=== PATIENT | female | born 1960 | race Caucasian/White ===

== ENCOUNTER 2021-03-07 20:57 | Emergency (ER) | payer OTHER ==
[~2021-03-07] VITALS: Ht 160 cm; Wt 89.8 kg
[2021-03-07 21:47] LABS: ABSOLUTE BASOPHILS 0.1 thou/uL (0.0-0.2); ABSOLUTE EOSINOPHILS 0.1 thou/uL (0.0-0.7); ABSOLUTE LYMPHOCYTES 2.4 thou/uL (0.8-5.3); ABSOLUTE MONOCYTES 0.8 thou/uL (0.0-1.2); ABSOLUTE NEUTROPHILS 7.6 thou/uL (1.6-8.1); BASOPHILS 0.9 %; EOSINOPHILS 0.7 %; HEMATOCRIT 40.6 % (37.0-47.0); HEMOGLOBIN 13.7 gm/dL (12.0-15.0); LYMPHOCYTES 21.8 %; MCH 30.5 pg (26.0-34.0); MCHC 33.8 g/dL (28.0-37.0); MCV 90.3 fL (80.0-100.0); MONOCYTES 7.4 %; MPV 7.2 fl. (7.2-11.1); NUCLEATED RBCS 0 /100WBC; PLATELET COUNT* 304 thou/uL (150-400); POLYS 69.2 %; RDW-CV 13.2 % (10.5-14.5)
[2021-03-07 21:56] LABS: CALCIUM 8.9 mg/dL (8.5-10.1); POTASSIUM 3.8 mmol/L (3.5-5.1)
[2021-03-07 22:00] LABS: ALBUMIN 3.7 g/dL (3.4-5.0); TOTAL BILIRUBIN 0.3 mg/dL (<0.1-1.0); TOTAL PROTEIN 7.1 g/dL (6.4-8.2)
[2021-03-08 00:58] VITALS: BP 141/90
--- NOTE | 2021-03-08 10:00 | EKG ---
[place] [address] ELECTROCARDIOGRAM REPORT Name: GALINA TREVIZO Room: [facility]#: [id number] Admission: 03/07/21 Attend Phys: Discharge: 03/08/21 Date of : 64 Date of Service: 03/07/212134 Report #: [id number] THIS REPORT FOR: //name// [facility] ED Test Date: 2021-03-07 Test Time: 21:35:12 Pat Name: GALINA TREVIZO Department: Room: Gender: F Assessment Services Manager: ANNIE : 1960 Requested By: Jada Hernandez Order Number: [id number] MD: Camilo River Measurements Intervals [place] Rate: 80 P: 46 WI: 132 QRS: -12 QRSD: 101 T: 9 QT: 372 QTc: 430 Interpretive Statements Sinus rhythm Low voltage, precordial leads Probable left ventricular hypertrophy No previous ECG available for comparison Electronically Signed On 03-08-2021 10:00:44 CDT by Camilo River [email or web address] <ELECTRONICALLY SIGNED> By: Camilo River MD, [facility] 03/08/21 1000 34 Camilo River MD, [facility] /EPI
== END 2021-03-08 00:58 | disposition home or self-care (01) ==
LOC: M.ERS 20:57
PROVIDERS: Personal Emergency Response Attendant
DX: R68.84 Jaw pain (principal); R07.89 Other chest pain